=== PATIENT | male | born 1970 | race American Indian/Alaskan Native ===

== ENCOUNTER 2016-03-24 13:56 | Outpatient (CLI) | payer BC, OTHER ==
[2016-03-24 14:21] LABS: Hematocrit 41.6 % (35.5-45.6); Hemoglobin 14.2 gm/dl (11.8-15.2); Mean Corpuscular HGB Conc 34 % (32-34); Mean Corpuscular Hemoglobin 32 pg (28-32); Mean Corpuscular Volume 94 fl (84-94); Platelet Count 371 K/mm3 (140-440); Red Blood Count 4.44 M/mm3 (3.65-5.03); Red Cell Distribution Width 12.7 % (13.2-15.2); White Blood Count 9.8 K/mm3 (4.5-11.0)
[2016-03-24 14:42] LABS: BUN/Creatinine Ratio 11.66; Blood Urea Nitrogen 14 mg/dL (9-20); Calcium 10.6 mg/dL (8.4-10.2); Carbon Dioxide 28 mmol/L (22-30); Chloride 98.2 mmol/L (98-107); Glucose 118 mg/dL (75-100); Potassium 3.8 mmol/L (3.6-5.0); Sodium 140 mmol/L (137-145)
[2016-03-24 14:43] LABS: Anion Gap 18 mmol/L
== END 2016-03-24 13:57 | disposition home or self-care (01) ==
LOC: LAB 13:56
DX: C21.0 Malignant neoplasm of anus, unspecified (principal); K85.90 Acute pancreatitis without necrosis or infection, unspecified; R19.4 Change in bowel habit; R10.9 Unspecified abdominal pain
CPT/HCPCS: 36415; 80048; 85027